=== PATIENT | female | born 1950 | race Caucasian/White ===

== ENCOUNTER 2018-01-28 09:50 | Emergency (ER) | payer MEDICARE, OTHER ==
[~2018-01-28] VITALS: Ht 154.9 cm; Wt 68.0 kg
[~2018-01-28 09:50] MED LIST: ACETAMINOPHEN-1 EAC1; AMBIEN 5 MG TABL5 M1 PO; CARDIZEM CD120 MG PO; CONCERTA54 M1 PO; LEXAPRO20 MG PO; WELLBUTRIN SR150 MG PO
[2018-01-28 10:13] LABS: ABSOLUTE BASOPHILS 0.1 thou/uL (0.0-0.2); ABSOLUTE EOSINOPHILS 0.1 thou/uL (0.0-0.7); ABSOLUTE MONOCYTES 0.6 thou/uL (0.0-1.2); ABSOLUTE NEUTROPHILS 3.7 thou/uL (1.6-8.1); BASOPHILS 0.9 %; EOSINOPHILS 1.1 %; HEMATOCRIT 37.7 % (37.0-47.0); HEMOGLOBIN 12.6 gm/dL (12.0-15.0); MCH 30.2 pg (26.0-34.0); MCHC 33.5 g/dL (28.0-37.0); MCV 90.3 fL (80.0-100.0); MONOCYTES 8.8 %; MPV 7.8 fl. (7.2-11.1); NUCLEATED RBCS 0 /100WBC; PLATELET COUNT* 250 thou/uL (150-400); POLYS 58.2 %; RBC 4.18 mil/uL (4.20-5.00); WBC 6.4 thou/uL (4.0-11.0)
[2018-01-28 10:26] LABS: APTT 28.3 Seconds (25.0-31.3); INR 1.1; PROTIME 10.4 Seconds (9.20-11.50)
[2018-01-28] MEDS ORDERED: LUNESTA2 MG PO (10:27)
[2018-01-28] MEDS ORDERED: ATIVAN0.5 MG PO (10:27)
[2018-01-28] MEDS ORDERED: RITALIN10 MG PO (10:28)
[2018-01-28] MEDS ORDERED: NAPROSYN500 MG PO (10:28)
[2018-01-28] MEDS ORDERED: AMITRIPTYLINE H10 M3 PO (10:29)
[2018-01-28 10:36] LABS: ANION GAP 9 mmol/L (7-16); BUN 11 mg/dL (7-18); CALCIUM 8.5 mg/dL (8.5-10.1); CHLORIDE 105 mmol/L (98-107); CO2 29 mmol/L (21-32); CREATININE 0.8 mg/dL (0.6-1.3); GLUCOSE 91 mg/dL (70-99); POTASSIUM 3.3 mmol/L (3.5-5.1); SODIUM 143 mmol/L (136-145)
[2018-01-28 10:40] LABS: ALBUMIN 3.7 g/dL (3.4-5.0); ALKALINE PHOSPHATASE 77 U/L (46-116); CK-MB MASS 1.3 ng/mL (<0.5-3.6); LIPASE 91 U/L (73-393); MAGNESIUM 1.9 mg/dL (1.8-2.4); NT-PRO BRAIN NAT PEPTIDE 227 pg/mL (<300); SGOT 19 U/L (15-37); SGPT 15 U/L (30-65); TOTAL BILIRUBIN 0.4 mg/dL (<0.1-1.0); TROPONIN-I LEVEL <0.06 ng/mL (<0.06)
[2018-01-28 11:20] VITALS: BP 155/60
--- NOTE | 2018-01-29 14:33 | EKG ---
[place] [address] ELECTROCARDIOGRAM REPORT Name: MÁRQUEZLUCILA Narayan Room: [facility]#: [id number] Admission: 01/28/18 Attend Phys: Discharge: 01/28/18 Date of : 50 Report #: [id number] THIS REPORT FOR: //name// [facility] ED Test Date: 2018-01-28 Test Time: 10:12:39 Pat Name: LUCILA MÁRQUEZ Department: Room: Gender: F [employer] Machine Operator: YASSINE Graves : 1950 Requested By: Juanjose Joseph Order Number: [id number] MD: Yossi Emery Measurements Intervals Curtis Rate: 57 P: 37 OR: 177 QRS: 17 QRSD: 101 T: 54 QT: 445 QTc: 434 Interpretive Statements Sinus rhythm Compared to ECG 06/06/2012 18:32:47 No significant changes Electronically Signed On 01-29-2018 14:33:02 CDT by Yossi Emery [email or web address] <ELECTRONICALLY SIGNED> By: Yossi Emery MD, [facility] 01/29/18 1433 1012 1012 Yossi Emery MD, FACC /EPI
== END 2018-01-28 11:21 | disposition home or self-care (01) ==
LOC: M.ERS 09:50
PROVIDERS: Family Medicine
DX: R00.2 Palpitations (principal); G89.29 Other chronic pain; M54.2 Cervicalgia; M54.9 Dorsalgia, unspecified; F17.210 Nicotine dependence, cigarettes, uncomplicated; Z90.710 Acquired absence of both cervix and uterus; Z88.5 Allergy status to narcotic agent; Z88.6 Allergy status to analgesic agent

== ENCOUNTER → 2018-08-11 | Outpatient (CLI) | payer MEDICARE, OTHER ==
[~2018-08-11] MED LIST changes: +AMITRIPTYLINE H10 M3 PO; +ATIVAN0.5 MG PO; +LUNESTA2 MG PO; +NAPROSYN500 MG PO; +RITALIN10 MG PO
== END ==
LOC: M.RAD 13:11
DX: Z12.31 Encounter for screening mammogram for malignant neoplasm of breast (principal)